=== PATIENT | female | born 1995 | race Caucasian/White ===

== ENCOUNTER 2021-01-08 11:44 | Emergency (ER) | payer MEDICARE, MEDICAID, SELFPAY ==
[2021-01-08 12:05] VITALS: BP 124/79; PULSE 101; RESP 18; TEMP 36.8; O2SAT 99
[2021-01-08 12:52] LABS: Glucose Point of Care 121 mg/dl (65-105)
--- NOTE | 2021-01-08 12:54 | PC.NURSE ---
pelvic exam per Dillan Kaufman [employer] no cultures
--- NOTE | 2021-01-08 12:59 | ED.GENADULT ---
HPI - General Adult General Chief complaint: Urogenital-Female Stated complaint: Bladder Source: patient Mode of arrival: ambulatory Limitations: no limitations History of Present Illness HPI narrative: Patient presents for evaluation of pelvic and vaginal pain with symptom onset yesterday. She is a very odd affect and provides me with conflicting statements throughout my interview. Sounds like she has some chronic urinary incontinence for which she sees urology and is under going bladder training. She states that the training has not helped with her symptoms. She states she woke from sleep with her pelvic pain yesterday morning. She went to the ER at [facility] and was given prescription for Pyridium and told to take Azo. Medications did not help. She woke from sleep with vaginal pain today. She reports some chronic dysuria, urinary frequency, hesitancy, which are all unchanged. She denies any fever, chills, nausea, vomiting, vaginal bleeding or discharge. Contraception consists of Depo-Provera with next injection due next month. She states she does not menstruate while on Depo. She denies any vaginal discharge but has some vaginal pruritus. She states she is not sexually active. It sounds like she had negative STI testing approximately a month ago from her [employer]STRU[employer]. Related Data Home Medications Medication Instructions Recorded Confirmed lamotrigine 150 mg DAILY 01/08/21 01/08/21 levetiracetam 1,000 mg PO BID 01/08/21 01/08/21 Allergies Allergy/AdvReac Type Severity Reaction Status Date / Time laxtex Allergy Intermediate Nervousness Uncoded 04/27/19 16:52 Review of Systems Review of Systems: Narrative: CONSTITUTIONAL: Denies fever, chills, or sweats. EYES: Denies visual changes, redness, or discharge. ENT: Denies rhinorrhea, congestion, sore throat, or otalgia. CARDIOVASCULAR: Denies chest pain, palpitations, or edema. RESPIRATORY: Denies cough or dyspnea. GASTROINTESTINAL: Denies abdominal pain, nausea, vomiting, or diarrhea. GENITOURINARY: Reports pelvic pain and vaginal pain. Reports chronic urinary frequency, hesitancy, dysuria, all unchanged. Reports vaginal pruritus SKIN: Denies rash or itching. MUSCULOSKELETAL: Denies back pain, joint pain, or myalgia. NEUROLOGIC: Denies headache, numbness, dizziness, or weakness. PSYCHIATRIC: Denies anxiety or depression. [facility] Past Medical History Medical History (Updated 01/08/21 @ 13:06 by Zaire Kaufman [facility], ) Urinary incontinence Urinary tract infection Surgical History Surgical History (Updated 01/08/21 @ 13:03 by Zaire Kaufman [facility], ) No pertinent past surgical history Family History Family History Mother Diabetes mellitus Father Diabetes mellitus Social History Social History (Updated 01/08/21 @ 13:03 by Zaire Kaufman [facility], ) Smoking status: Never smoker Alcohol intake: never Substance use: never Additional living arrangements comments: Lives with boyfriend Occupation/Education: unemployed Gender identity (if verbalized by the patient): Female Sexual Orientation (if Verbalized by the Patient): Straight or Heterosexual Spiritual care concerns: No Exam Narrative: Exam Narrative: GENERAL: Well-appearing, well-nourished, and in no acute distress. HEAD: Normocephalic, atraumatic. EYES: PERRLA and EOMI. ENT: Nares clear, no rhinorrhea or epistaxis. Mucous membranes moist. Oropharynx without tonsillar hypertrophy exudate or other lesions. Bilateral TMs pearly hernandez nonbulging NECK: Supple. No adenopathy or masses. No carotid bruits or JVD CHEST: Clear to auscultation. No respiratory distress. No wheezes rales or rhonchi HEART: Regular rate and rhythm. No murmur heard. Normal peripheral pulses. ABDOMEN: Soft, tenderness noted in suprapubic region without rebound or guarding. Nondistended, normal active bowel sounds. EXTREMITIES: Normal
== END 2021-01-08 13:08 | disposition home or self-care (01) ==
PROVIDERS: Emergency Provider Nurse Practitioner; PCP Nurse Practitioner Psychiatric/Mental Health
DX: N30.00 Acute cystitis without hematuria (principal); G40.909 Epilepsy, unspecified, not intractable, without status epilepticus
CPT/HCPCS: 81003; 82948; 87077; 87086; 87088; 87186; 99213; G0463

== ENCOUNTER 2022-02-08 14:58 | Outpatient (CLI) | payer MEDICARE, MEDICAID, SELFPAY ==
--- NOTE | ~2022-02-08 | CT_ITS ---
EXAMINATION: CT abdomen pelvis wo con DATE: 02/08/2022 15:18 INDICATION: Right flank pain. Bilateral nephrolithiasis. TECHNIQUE: Computed tomography (CT) of the abdomen and pelvis was performed without intravenous contr ast. Automated exposure control and iterative reconstruction technique were employed. Exam dose: 182 .08 mGy-cm total exam DLP. COMPARISON: 12/31/2017 KUB FINDINGS: The lung bases are clear. Normal heart size. No pericardial or pleural effusion. The liver, gallbladder, spleen, pancreas, bile ducts and pancreatic duct are unremarkable. Normal morphology of the adrenal glands. There are 2 proximal to 3 and 3.5 mm nonobstructing right renal calculi. No left renal calculus. No u rinary tract calculus or hydroureteronephrosis is evident. Normal caliber of the abdominal aorta. No intraperitoneal or retroperitoneal or pelvic mass lesion or adenopathy or ascites. The uterus, adnexal areas and urinary bladder are unremarkable. Mild colonic diverticulosis; no CT evidence of diverticulitis. No bowel obstruction, bowel wall thick ening, pneumatosis or intraperitoneal free air is noted. There is a prominent of fecal material in th e rectum and colon. Small fat-containing umbilical hernia. Included skeletal structures are unremarkable. IMPRESSION: 2 nonobstructing 3 mm and 2.5 mm right renal calculi Mild colonic diverticulosis Reviewed, dictated and finalized at [facility]. Reviewed, dictated and finalized at location [facility].
== END 2022-02-08 14:59 | disposition home or self-care (01) ==
PROVIDERS: PCP Family Medicine; Visit Provider Family Medicine
DX: R10.9 Unspecified abdominal pain (principal); N20.0 Calculus of kidney; K57.30 Diverticulosis of large intestine without perforation or abscess without bleeding
CPT/HCPCS: 74176

== ENCOUNTER 2023-02-11 09:29 | Outpatient (CLI) | payer MEDICARE, MEDICAID, SELFPAY ==
--- NOTE | ~2023-02-11 | XR_ITS ---
Supine and upright views of the abdomen Clinical history: Right-sided kidney stone COMPARISON: 12/31/2017 Findings: Bowel gas pattern is nonspecific. No evidence for obstruction or free air. Also small right renal stones measuring up to 3 mm. Osseous structures are intact. Impression: Possible small right renal stones, as above. Reviewed, dictated and finalized at location . Impression: Possible small right renal stones, as above.
== END 2023-02-11 09:30 | disposition home or self-care (01) ==
PROVIDERS: PCP Family Medicine; Visit Provider Urology
DX: N20.0 Calculus of kidney (principal)
CPT/HCPCS: 74018

== ENCOUNTER 2023-08-16 14:59 | Emergency (ER) | payer MEDICARE, MEDICAID, SELFPAY ==
--- NOTE | ~2023-08-16 | CT_ITS ---
EXAMINATION: CT abdomen pelvis wo con DATE: 08/16/2023 16:08 INDICATION: Left flank pain TECHNIQUE: Computed tomography (CT) of the abdomen and pelvis was performed without intravenous contr ast. Automated exposure control and iterative reconstruction technique were employed. Exam dose: 165 .67 mGy-cm total exam DLP. COMPARISON: 02/11/2023 KUB 02/08/2022 CT abdomen pelvis FINDINGS: The lung bases are clear. Normal heart size. No pericardial or pleural effusion. The liver, gallbladder, bile ducts, spleen, pancreas, pancreatic duct, and adrenal glands are unremar kable. Approximately 2.5 x 3.5 mm mid right renal calculus. Approximately 2.5 x 4.5 mm lower pole right renal calculus. Pinpoint nonobstructing lower pole left renal calculus. No renal mass lesion is evident on this limited noncontrast examination. Normal caliber of the abdominal aorta. No intraperitoneal or retroperitoneal or pelvic mass lesion o r lymphadenopathy or ascites. Uterus, adnexal areas and urinary bladder are unremarkable. Normal appendix. No bowel obstruction or intraperitoneal free air. Small fat-containing abdominal hernia. Included skeletal structures are unremarkable. IMPRESSION: Mild right nonobstructive nephrolithiasis and minimal left nonobstructive nephrolithiasi s No ureteral calculus or hydroureteronephrosis is noted on either side Reviewed, dictated and finalized at [facility]. Reviewed, dictated and finalized at location B. [employer] SPECIALIST IMPRESSION: Mild right nonobstructive nephrolithiasis and minimal left nonobst ructive nephrolithiasis No ureteral calculus or hydroureteronephrosis is noted on either side
--- NOTE | ~2023-08-16 | XR_ITS ---
EXAMINATION: XR chest 2V Exam Date/Time: 08/16/2023 16:08 SCREEN DOOR MAKER HISTORY: L flank/lower rib pain Comparison: CT abdomen pelvis, same date. RESULT: Lines, tubes, and devices: None. Lungs and pleura: Clear. Cardiomediastinal silhouette: Normal. Other: No acute osseous or upper abdominal finding. IMPRESSION: No acute cardiopulmonary process. Reviewed, dictated and finalized at location K. EN DOOR MAKER
[2023-08-16 15:08] VITALS: BP 114/74; PULSE 104; RESP 15; TEMP 36.3; O2SAT 95
--- NOTE | 2023-08-16 15:58 | ED.ABDPAIN ---
HPI - Abdominal Pain General Chief Complaint: Abdominal Pain Stated Complaint: left flank pain Time Seen by Provider: 08/16/23 15:26 History of Present Illness HPI narrative: 28-year-old female with a prior history of kidney stones reports for evaluation for left-sided flank pain and left inferior posterior rib pain that radiates down into her abdomen since yesterday. Patient reports the pain is worse when she and breathes deeply and moves. She also states when she urinates, feels like something is moving her abdomen between her kidneys and bladder. She denies nausea, vomiting, fever, dysuria, gross hematuria, urinary frequency urgency. She states she went to urgent care prior to arrival and was told she had blood in her urine and was advised to come to the ER for further evaluation. LMP approximately 2 weeks ago. Of note, she tested positive for COVID a couple days before [place] and has a mild residual cough. Related Data Home Medications Medication Instructions Recorded Confirmed lamotrigine 100 mg tablet 150 mg DAILY 01/08/21 01/08/21 levetiracetam 1,000 mg tablet 1,000 mg PO BID 01/08/21 01/08/21 Allergies Allergy/AdvReac Type Severity Reaction Status Date / Time laxtex Allergy Intermediate Nervousness Uncoded 08/16/23 15:10 Review of Systems Review of Systems: CONSTITUTIONAL: Denies fever, chills, or sweats. EYES: Denies visual changes, redness, or discharge. ENT: Denies rhinorrhea, congestion, sore throat, or otalgia. CARDIOVASCULAR: Denies chest pain, palpitations, or edema. RESPIRATORY: see HPI GASTROINTESTINAL: See HPI GENITOURINARY: Denies dysuria or hematuria. SKIN: Denies rash or itching. MUSCULOSKELETAL: see HPI NEUROLOGIC: Denies headache, numbness, or weakness. PSYCHIATRIC: Denies anxiety or depression. [facility] Past Medical History Medical History Urinary incontinence Urinary tract infection Surgical History Surgical History No pertinent past surgical history Family History Family History Mother Diabetes mellitus Father Diabetes mellitus Social History Social History Smoking status: Never smoker Alcohol intake: never Substance use: never Additional living arrangements comments: Lives with boyfriend Occupation/Education: unemployed Gender identity (if verbalized by the patient): Female Sexual Orientation (if Verbalized by the Patient): Straight or Heterosexual Spiritual care concerns: No Exam Narrative: GENERAL: Well-appearing, well-nourished, and in no acute distress. patient resting comfortably in exam bed. She is pleasant and conversational. HEAD: Normocephalic, atraumatic. EYES: PERRLA and EOMI. ENT: Nares clear, no rhinorrhea or epistaxis. Mucous membranes moist. NECK: Supple. CHEST: Clear to auscultation. No respiratory distress. HEART: Regular rate and rhythm. No murmur heard. Normal peripheral pulses. ABDOMEN: Soft, nontender, nondistended, normal active bowel sounds. No rebound, guarding or rigidity. Left CVA tenderness. EXTREMITIES: Normal range of motion. No edema. SKIN: Warm, dry, no rash. NEURO: No focal deficits. Alert and oriented x3 Course Vital Signs Vital signs: Vital Signs Temperature 97.3 F L 08/16/23 15:08 Pulse Rate 104 H 08/16/23 15:08 Respiratory Rate 15 08/16/23 15:08 Blood Pressure 114/74 08/16/23 15:08 Pulse Oximetry 95 08/16/23 15:08 Oxygen Delivery Room Air 08/16/23 15:08 Temperature 97.3 F L 08/16/23 15:08 Pulse Rate 88 08/16/23 18:37 Respiratory Rate 18 08/16/23 18:37 Blood Pressure 112/78 08/16/23 18:37 Pulse Oximetry 100 08/16/23 18:37 Oxygen Delivery Room Air 08/16/23 15:08 MDM - Abdominal Pain MDM Narrative Medical deci
[2023-08-16 16:02] LABS: Basophils Percent Auto 0.3 % (0.2-1.2); Eosinophils Absolute Auto 0.1 K/mm3 (0-0.3); Eosinophils Percent Auto 0.7 % (0-4.4); Hemoglobin 13.2 g/dL (12.0-15.0); Immature Granulocyte Absolute 0.04 K/mm3 (0.00-0.031); Immature Granulocyte Percent A 0.4 % (0-0.5); Lymphocytes Absolute Auto 1.98 K/mm3 (0.9-3.2); Lymphocytes Percent Auto 19.3 % (18.3-44.2); Mean Corpuscular HGB Conc 32.2 g/dl (32-36); Mean Corpuscular Hemoglobin 29.1 pg (26-34); Mean Corpuscular Volume 90.3 fl (80-100); Mean Platelet Volume 9.4 fl (7.4-10.4); Monocytes Absolute Auto 0.7 K/mm3 (0.1-0.6); Monocytes Percent Auto 6.6 % (2.6-8.5); Neutrophils Absolute Auto 7.5 K/mm3 (1.3-6.7); Neutrophils Percent Auto 72.7 % (45.5-73.1); Platelet Count Result 510 k/mm3 (150-375); Red Blood Count 4.54 M/mm3 (4.2-5.4); Red Cell Distribution Width 12.2 % (11.5-14.5); White Blood Count 10.3 K/mm3 (4.5-10.0)
[2023-08-16 16:09] LABS: Appearance Urine Clear (Clear); Bacteria Urine 1+ /hpf; Bilirubin Urine Negative (Negative); Blood Urine 3+ (Negative); Color Urine Yellow (Yellow); Glucose Urine UA Negative (Negative); Ketones Urine Negative (Negative); Leukocyte Esterase Ur Trace LEU/UL (Negative); Nitrate Urine Negative (Negative); Non Pathogenic Casts 0-2; Protein Urine Trace mg/dL (Negative); RBC Urine >100 /hpf (0-2); Squamous Epithelial Cell Urine Few /hpf (Few); Urobilinogen Urine 0.2 mg/dL (<2.0)
[2023-08-16 16:13] LABS: Alanine Aminotransferase 32 U/L (6-35); Albumin Level 4.1 g/dL (3.5-5.1); Alkaline Phosphatase 101 U/L (38-126); Anion Gap 9 mmol/L (8-16); Aspartate Amino Transferase 29 U/L (14-36); Bilirubin,Total 0.4 mg/dL (0.2-1.3); Blood Urea Nitrogen 8 mg/dL (7-17); Calcium 9.7 mg/dL (8.4-10.2); Carbon Dioxide 25 mmol/L (22-30); Chloride 104 mmol/L (98-107); Estimated Glomerular Filt Rate > 60; Glucose 92 mg/dL (65-110); Lipase 79 U/L (23-300); Sodium 138 mmol/L (137-145)
[2023-08-16] MEDS: SODIUM CHLORIDE 0.9% IV 1,000 ML 999 ML IV CONT (16:24)
[2023-08-16 16:36] LABS: Add Urine Microscopic? YES
[2023-08-16] MEDS: CYCLOBENZAPRINE HCL 10 MG TABLET PO (17:45)
[2023-08-16] MEDS: KETOROLAC 30 MG/ML VIAL (*BKC) IV PUSH (17:46)
[2023-08-16 18:37] VITALS: BP 112/78; PULSE 88; RESP 18; O2SAT 100
[2023-08-16 18:59] LABS: D Dimer 0.35 ug/mL (<0.48)
[2023-08-16] MEDS: CEPHALEXIN 500 MG CAPSULE PO (19:22)
== END 2023-08-16 19:25 | disposition home or self-care (01) ==
PROVIDERS: Emergency Medicine; Emergency Provider Physician Assistant; PCP Family Medicine
DX: R10.9 Unspecified abdominal pain (principal); R82.998 Other abnormal findings in urine; N20.0 Calculus of kidney; R32 Unspecified urinary incontinence
CPT/HCPCS: 36415; 71046; 74176; 80053; 81001; 81025; 83690; 85025; 85380; 87086; 87088; 96361; 96374; 99284; A9270; J1885; J7030

== ENCOUNTER 2023-08-19 09:32 | Outpatient (CLI) | payer MEDICARE, MEDICAID, SELFPAY ==
--- NOTE | ~2023-08-19 | XR_ITS ---
Supine and upright views of the abdomen Clinical history: Kidney stone COMPARISON: 02/11/2023 Findings: Bowel gas pattern is nonspecific. No evidence for obstruction or free air. Small right kidn ey stones are present, similar to prior exam. Osseous structures are intact. Impression: Right nephrolithiasis, similar to prior exam. Reviewed, dictated and finalized at [facility]. TIFICATION AND RECORDS COMMANDER Impression: Right nephrolithiasis, similar to prior exam.
== END 2023-08-19 09:33 | disposition home or self-care (01) ==
PROVIDERS: PCP Family Medicine; Visit Provider Urology
DX: N20.0 Calculus of kidney (principal)
CPT/HCPCS: 74018

== ENCOUNTER 2024-03-06 11:48 | Outpatient (CLI) | payer MEDICARE, MEDICAID, SELFPAY ==
[2024-03-06 12:38] LABS: Prothrombin Time 13.3 Seconds (11.1-14.7)
[2024-03-06 12:39] LABS: Partial Thromboplastin Time 22.5 Seconds (22.3-36.8)
== END 2024-03-06 11:49 | disposition home or self-care (01) ==
LOC: ANHSURGERY 11:55
PROVIDERS: PCP Physician Assistant; Visit Provider Urology
DX: Z01.818 Encounter for other preprocedural examination (principal); N20.0 Calculus of kidney
CPT/HCPCS: 36415; 85610; 85730; 87086

== ENCOUNTER 2024-03-27 00:14 | Day surgery (SDC) | payer MEDICARE, MEDICAID, SELFPAY ==
[2024-03-05 14:45] VITALS: BMI 22.2
--- NOTE | 2024-03-05 14:46 | PC.NURSE ---
Report to the Outpatient Waiting Room, entrance under the green pavilion located off [facility], at time _1015_ on date _[id number]_. Planned Procedure Time: _1215_. Time changes happen often and if your time is changed the preop area will call you the afternoon before. - You and your visitor will be asked to self-screen and do not enter if you have any COVID symptoms. - A mask is optional within the hospital at this time. Patients may have clear liquids (water, carbonated beverages, clear teas, apple juice) until 3 hours prior to surgery with a maximum of 20 ounces. - No food from midnight until time of surgery Take the following medications with a SIP of water the morning of surgery: ___Levetiracetam and Lamotrigine DO NOT STOP ANY OF YOUR OTHER PRESCRIPTION MEDICATIONS PRIOR TO SURGERY ?EXCEPT THE FOLLOWING Medications to discontinue per physician Please ask Dr Allegra hess if OK to take Ibuprofen or if need to hold. Date to take last dose Please no make-up, nail pakistani, hairspray, perfume, deodorant, or body powder the day of surgery. No jewelry (including any body piercings) or valuables the day of surgery, leave them at home. Please take a shower or bath the night before, or the morning of, surgery with an antibacterial soap. Wear comfortable, loose fitting clothing. - Jewelry must be removed prior to entering the operating room. Rings and piercings that are not removed may be cut off. - The hospital will not accept responsibility for valuables. - Please leave all valuables, including medications, at home the day of surgery. If you are going home after surgery, a licensed commercial collections driver must drive you home. - NO public transportation without another adult if you receive anesthesia. - We recommend that an adult stay with you for 24 hours following discharge. - We also recommend that you do not drive, make important decision, drink alcoholic beverages, or take any drugs that were not prescribed by your health care provider for at least 24 hours after your discharge time. For Pediatric surgeries, we recommend two adults accompany the child home. If you or anyone in your household have experienced Covid symptoms in the past week, please notify your surgeon or the nurse liaison at the phone number below for possible testing. Telephone instructions given to ___Kerie___and asked if any additional questions and then verbalized understanding. Patient advised to call surgeon office or pre surgery nurse liaison [phone] if any additional questions.
--- NOTE | 2024-03-20 07:44 | P.HP_ITS ---
History of Present Illness History of Present Illness Consent: Risks, benefits, and alternatives have been discussed and questions answered. Patient agrees to proceed with procedure. Chief complaint: right kidney stone Narrative: Yovana Guajardo is a 28 year old female who has had ureteroscopy with stone extraction by an outside urologist ( Dr. Matamoros) in the remote past. She has had a known residual stone in her right kidney that has now become symptomatic. Recent imaging shows a calcified 4-5 mm stone. She presents for right ESWL in his aware of the risks including, but not limited to, need for additional procedures, hematuria and perinephric hematoma. Review of Systems Review of Systems: All systems reviewed & are unremarkable except as noted in HPI and below PMFSH Past Medical History Medical History Urinary incontinence Urinary tract infection Surgical History Surgical History No pertinent past surgical history Family History Family History Mother Diabetes mellitus Father Diabetes mellitus Social History Social History Smoking status: Never smoker Alcohol intake: never Substance use: never Living arrangements: with family Additional living arrangements comments: Lives with boyfriend Occupation/Education: unemployed Gender identity (if verbalized by the patient): Female Sexual Orientation (if Verbalized by the Patient): Straight or Heterosexual Spiritual care concerns: No Meds Home Medications and Allergies Home Medications Medication Instructions Recorded Confirmed Type lamotrigine 100 mg tablet 150 mg PO DAILY 01/08/21 03/05/24 History levetiracetam 1,000 mg tablet 1,000 mg PO BID 01/08/21 03/05/24 History ibuprofen 600 mg tablet 600 mg PO Q6H PRN pain #14 tabs 08/16/23 03/05/24 Rx Allergies Allergy/AdvReac Type Severity Reaction Status Date / Time latex Allergy Mild Rash Verified 03/05/24 14:33 Exam Const: General: no acute distress Resp: Effort & Inspection: normal respiratory effort GI: Inspection: non-distended GI Palp: No abdominal tenderness and No Guarding due to palpation present (GI) Auscultation: normal bowel sounds Assessment and Plan Assessment and plan (1) Right renal stone: Code(s): N20.0 - Calculus of kidney Status: Acute Assessment and Plan: * Right ESWL
[2024-03-25 14:49] VITALS: BMI 22.2
--- NOTE | 2024-03-25 14:59 | PC.NURSE ---
Report to the Outpatient Waiting Room, entrance under the green pavilion located off [facility], at time _1100 on date _03/25/24 . Planned Procedure Time: _1300 .? Time changes happen often and if your time is changed the preop area will call you the afternoon before. - You and your visitor will be asked to self-screen and do not enter if you have any COVID symptoms. Please call surgeon if you need to reschedule. - A mask is optional within the hospital at this time. Patients may have clear liquids (water, carbonated beverages, clear teas, apple juice) until 3 hours prior to surgery with a maximum of 20 ounces. - No food from midnight until time of surgery and no smoking Take only the following medications with a SIP of water on the morning of surgery: ___KEPPRA AND LAMICTAL DO NOT STOP ANY OF YOUR OTHER PRESCRIPTION MEDICATIONS PRIOR TO SURGERY EXCEPT THE FOLLOWING Medications to discontinue per physician IBUPROFEN Date to take last dose___CONSULT DR. FAIRCHILD_RE:STOPPING BEFORE SURGERY Please no make-up, nail yi, hairspray, perfume, deodorant, or body powder the day of surgery.? No jewelry (including any body piercings) or valuables the day of surgery, leave them at home.? Please take a shower or bath the night before, or the morning of, surgery with an antibacterial soap.? Wear comfortable, loose fitting clothing.? - Jewelry must be removed prior to entering the operating room.? Rings and piercings that are not removed may be cut off. - The hospital will not accept responsibility for valuables.? - Please leave all valuables, including medications, at home the day of surgery. If you are going home after surgery, a licensed motor pool driver must drive you home.? - NO public transportation without another adult if you receive anesthesia. - We recommend that an adult stay with you for 24 hours following discharge. - We also recommend that you do not drive, make important decision, drink alcoholic beverages, or take any drugs that were not prescribed by your health care provider for at least 24 hours after your discharge time. Follow any additional instructions given to you from your surgeon. Telephone instructions given to __GRACEE and asked if any additional questions and then verbalized understanding. Patient advised to call surgeon office or pre surgery nurse liaison [phone] if any additional questions.
--- NOTE | 2024-03-25 15:07 | PC.NURSE ---
PT STATES NO CHANGE IN HEALTH SINCE PREOP ASSESSMENT DONE ON 03/05/24. NEW INSTRUCTIONS GIVEN.
[2024-03-27] VITALS (9 sets, daily range): BP systolic 92–128; BP diastolic 57–89; PULSE 48–72; RESP 8–18; TEMP 36.6; O2SAT 98–100
--- NOTE | ~2024-03-27 | XR_ITS ---
EXAMINATION: XR abdomen/kub 1V DATE: 03/27/2024 10:50 INDICATION: Kidney stone. TECHNIQUE: A supine view of the abdomen on 2 radiographs was obtained. COMPARISON: CT abdomen and pelvis 08/16/2023 FINDINGS: There are no dilated loops of bowel. There are 4 mm and 3 mm stones in right kidney. IMPRESSION: 1. Right kidney stones. Reviewed, dictated and finalized at location A. IMPRESSION: 1. Right kidney stones.
--- NOTE | 2024-03-27 05:50 | WPDHPUPDATE1 ---
History and Physical Update Update Date/Time: 03/27/24 05:50 History and Physical has been reviewed, including an updated exam of the patient. There are NO changes in the patient's condition. Risks, benefits, and alternatives have been discussed and questions answered. Patient agrees to proceed with procedure.
--- NOTE | 2024-03-27 09:46 | WPDANESEPPF ---
Anes - Initial Pre Proc Eval Procedure: Operation Date: 03/27/24 11:30 Proposed Procedures p Right Extracorporeal Shock Wave Lithotripsy - Niles Dinh MD Date/Time: 03/27/24 09:46 Surgeon: Niles Dinh MD Pre Op Diagnosis: right kidney stone Patient Data Age: 29 Gender: F Height: 1.5 m Weight: 50 kg Allergies Allergy/AdvReac Type Severity Reaction Status Date / Time latex Allergy Mild Rash Verified 03/24/24 14:14 Home Medications Medication Instructions Recorded Confirmed Type lamotrigine 100 mg tablet 150 mg PO DAILY 01/08/21 03/24/24 History levetiracetam 1,000 mg tablet 1,000 mg PO BID 01/08/21 03/24/24 History ibuprofen 600 mg tablet 600 mg PO Q6H PRN pain #14 tabs 08/16/23 03/24/24 Rx Patient hx anesthesia problems: none Family hx anesthesia problems: none Results Review: All pre-operative results and documents have been reviewed as part of the pre-operative evaluation. [facility] Past Medical History Medical History Anxiety Seizures Urinary incontinence Urinary tract infection Surgical History Surgical History H/O gynecological procedure 12/01/2015 Nexplanon insertion 01/27/2019 Nexplanon removal Family History Family History Mother No problems noted. Father Diabetes mellitus Grandparent Diabetes mellitus Social History Social History (Updated 03/24/24 @ 14:19 by Alyssa Gomez MA) Smoking status: Never smoker Alcohol intake: never Substance use: never Do You Feel Safe in your Home?: Yes Lack of Transportation: No Lack of Food: Never True Current Housing: Decline to Answer Concerned About Future Housing: No Difficulty Paying Gas/Electric Bills: No Difficulty Paying for Meds: No Currently Unemployed: YES Education: High School Diploma/GED Difficulty w/ Childcare or Family Care: No Living arrangements: with family Occupation/Education: unemployed Gender identity (if verbalized by the patient): Female Sexual Orientation (if Verbalized by the Patient): Straight or Heterosexual Spiritual care concerns: No Anes - Eval Final PreProcedure Day of Procedure 03/27/24 09:46 Patient weight: normal Heart: regular rate and rhythm Lungs: clear to auscultation Airway: Mallampati scale class II Neurological: alert and oriented Last oral intake: >/= 8 hours ASA classification: III Emergent: no Anesthetic plan: proceed Anesthesia type and monitoring: general LMA and standard monitoring Results Review: All pre-operative results and documents have been reviewed as part of the pre-operative evaluation. Informed Consent: The patient's anesthetic plan and its attendant risks and benefits were discussed with the patient/family/POA. Questions were solicited and answers provided to the satisfaction of the patient/family/POA.
[2024-03-27 10:25] LABS: Beta HCG Quantitative < 2.39 mIU/ML
[2024-03-27] MEDS: LACTATED RINGERS 1,000 ML 30 ML IV CONT (10:30)
[2024-03-27] MEDS: ceFAZolin 2 GM/D5W 50 ML 2 GM/50 ML BAG IVPB (11:34)
--- NOTE | 2024-03-27 11:53 | W.PM.PROC2 ---
Procedure Note - Detailed Date of Procedure 03/27/24 Pre-op Diagnosis Right kidney stone Post-op Diagnosis Same Procedure Performed Right ESWL Surgeon Niles Dinh MD Anesthesia General Description of Procedure The patient was brought to the operative suite where she was placed in the supine position on the Dornier lithotripsy table. The focal point of the lithotripter was placed at a 5mm right renal calculus. A total of 2500 shocks were delivered at a power setting of 4. There appeared to be good fragmentation of the stone. The patient tolerated the procedure well and was taken to the recovery room in good condition. Drains Yes Packing Yes Pathology Yes Complications No immediate complications Condition Stable
[2024-03-27] MEDS: KETOROLAC 15 MG/ML VIAL (*BKC) IV PUSH (12:13)
--- NOTE | 2024-03-27 13:00 | SUR.PHASEI ---
Simple mask removed 1255.
== END 2024-03-27 13:57 | disposition home or self-care (01) ==
PROVIDERS: PCP Physician Assistant; Visit Provider Urology
PROC: (CPT 50590; principal; 2024-03-27 11:30)
DX: N20.0 Calculus of kidney (principal)
CPT/HCPCS: 50590; 36415; 74018; 84702; J0690; J1885; J2250; J3010; J7120